=== PATIENT | female | born 1980 | race Caucasian/White ===

== ENCOUNTER 2018-06-28 17:03 | Emergency (ER) | payer SELFPAY ==
[2018-06-28 17:03] VITALS: BMI 26.3
[2018-06-28 17:18] VITALS: BP 116/79; PULSE 96; RESP 18; TEMP 99.7; O2SAT 98
[2018-06-28] MEDS ORDERED: Lidocaine 1% Inj (20ml) INFIL STA (17:19)
[2018-06-28] MEDS ORDERED: Lidocaine Hydrochloride 5 ML INJ ONE (17:27)
--- NOTE | 2018-06-28 17:36 | C.PDOC ---
History Of Present Illness 37 year old female presents to the ED for evaluation of laceration to the right tibia area sustained prior to arrival status post slipping and falling forward. Denies any other injuries, LOC, weakness, numbness, or any other physical complaints. Time Seen by Provider: 06/28/18 17:15 Chief Complaint (Nursing): Abnormal Skin Integrity History Per: Patient History/Exam Limitations: no limitations Onset/Duration Of Symptoms: Mins Current Symptoms Are (Timing): Still Present Location Of Injury: Right: Leg (laceration ) Quality Of Symptoms: Painful Past Medical History Reviewed: Historical Data, Nursing Documentation, Vital Signs Vital Signs: Last Vital Signs Temp 99.7 F H 06/28/18 17:16 Pulse 96 H 06/28/18 17:16 Resp 18 06/28/18 17:16 BP 116/79 06/28/18 17:16 Pulse Ox 98 06/28/18 17:16 - Medical History PMH: No Chronic Diseases Surgical History: No Surg Hx - [facility] Procedures DELIVERY OF PRODUCTS OF CONCEPTION, EXTERNAL APPROACH (07/14/16) DRAINAGE OF AMNIOTIC FL, THERAP FROM POC, VIA OPENING (07/14/16) REPAIR PERINEUM SKIN, EXTERNAL APPROACH (07/14/16) Family History: States: No Known Family Hx - Social History Hx Alcohol Use: No Hx Substance Use: No - Immunization History Hx Tetanus Toxoid Vaccination: No Hx Influenza Vaccination: No Hx Pneumococcal Vaccination: No Review Of Systems Except As Marked, All Systems Reviewed And Found Negative. Skin: Positive for: Other (laceration to right anterior tibia area ) Neurological: Negative for: Weakness, Numbness Physical Exam - Physical Exam Appears: Non-toxic, No Acute Distress Skin: Warm, Dry, No Rash Head: Normacephalic Eye(s): bilateral: Normal Inspection Nose: Normal Oral Mucosa: Moist Extremity: Normal ROM, No Swelling, Other (1cm laceration involving subcutaneous tissue of midshaft anterior right tibia ) Extremity: Bilateral: Normal Color And Temperature, Normal ROM Neurological/Psych: Oriented x3, Normal Speech Gait: Steady ED Course And Treatment O2 Sat by Pulse Oximetry: 98 (RA) Pulse Ox Interpretation: Normal Laceration - Laceration Repair anterior R lanier Wound Length (In cm): 1cm Description Of Wound: Linear Wound Cleansed With: Sterile Saline (and peroxide ) Anesthesia: Lidocaine 1% Wound Examination: Irrigated With Saline, No FB With Wound Exploration, No Tendon Injury With Wound Exploration Wound Closure: Suture (1) Suture Technique And Material Used: Interrupted, Nylon (3-0) Wound Complexity: Simple Medical Decision Making Medical Decision Making: Plan - Motrin 400mg PO Laceration repair done without difficulty. Patient tolerated procedure well. On re-examination, patient is resting comfortably in no acute distress. Patient reports improvement of symptoms. No need for abx/Tdap. Patient given follow up instructions. Instructed to return to ER if symptoms worsen or new symptoms arise. Disposition Doctor Will See Patient In The: Office Counseled Patient/Family Regarding: Studies Performed, Diagnosis - Disposition Referrals: [facility] [Outside] [facility] [Outside] [facility] [Outside] [facility] [Outside] Disposition: HOME/ ROUTINE Disposition Time: 17:35 Condition: GOOD Additional Instructions: mantiene limpio y cubierto poquito de inguento encima diario regressa en 7 tidwell para sacar el punto (librado sutura de 3-0 Nylon) 07/05/18 (o' el jessenia antes o' despues) ibuprofeno 400 mg cada 6 horas fide necessario para dolor bolsa de hielo encima 1/2 hora por hora fide necessario. Instructions: Laceration Repair With Stitches (DC) Forms: [facility] (Bengali) Print Language: BRITISH - Clinical Impression Clinical Impression: Laceration - injury - Scribe Statement The provider has reviewed the documentation as recorded by the Scribe Monet Ivey All medical record entries made by the Scribe were at my direction and personally dictated by me. I have reviewed the chart and agree that the record accurately reflects my personal performance of the history, physical exam, medical decision making, and the department course for this patient. I have also personally directed, reviewed, and agree with the discharge instructions and disposition.
[2018-06-28] MEDS ORDERED: Bacitracin 500 Units/gm Oint Foilpak UD ONE (17:43)
== END 2018-06-28 17:53 | disposition home or self-care (01) ==
LOC: C.ER 17:03
DX: S81.811A Laceration without foreign body, right lower leg, initial encounter (principal); W01.0XXA Fall on same level from slipping, tripping and stumbling without subsequent striking against object, initial encounter